=== PATIENT | male | born 1990 | race Caucasian/White ===

== ENCOUNTER 2021-12-31 09:25 | Emergency (ER) | payer SELFPAY ==
[~2021-12-31] VITALS: Ht 172 cm; Wt 203.0 kg
--- NOTE | 2021-12-31 09:36 | ED General ---
General Stated Complaint: LWR EXT TINGLING/NUMBNESS History of Present Illness Date Seen by Provider: Dec 31, 2021 Time Seen by Provider: 09:30 Initial Comments 31-year-old male is sent here from urgent care with complaints of sudden onset of headache and tingling in his bilateral upper and lower extremities which lasted for a few minutes and then went away. I spoke with the urgent care provider who relayed that the patient appeared to be having expressive aphasia while in the urgent care clinic, and he was sent over to get a CT scan to rule out stroke. Patient states that most of the tingling sensation is gone except for some mild tingling sensation in his hands and fingers bilaterally. Patient states that headache has resolved. Denies any weakness on either side of his body, chest pain, palpitations, dizziness, blurry vision, confusion. Patient is able to verbalize without any apparent problems. Speech is clear and coherent. Allergies and Home Medications Patient Home Medication List Home Medication List Reviewed: Yes Review of Systems Review of Systems Constitutional: no symptoms reported EENTM: no symptoms reported Respiratory: no symptoms reported Cardiovascular: no symptoms reported Gastrointestinal: no symptoms reported Genitourinary: no symptoms reported Musculoskeletal: no symptoms reported Skin: no symptoms reported Psychiatric/Neurological: Headache, Tingling Hematologic/Lymphatic: No Symptoms Reported Immunological/Allergic: no symptoms reported Physical Exam Vital Signs Vital Signs - First Documented 12/31/21 09:35 Temp 36.4 Pulse 98 Resp 16 B/P (MAP) 174/116 (135) Pulse Ox 97 O2 Delivery Room Air Capillary Refill : Height, Weight, BMI Height: '" Weight: lbs. oz. kg; BMI Method: General Appearance: No Apparent Distress, WD/WN, Obese HEENT: PERRL/EOMI Neck: Full Range of Motion, Normal Inspection, Non Tender, Supple Respiratory: Lungs Clear, Normal Breath Sounds Cardiovascular: Regular Rate, Rhythm Gastrointestinal: Non Tender, Soft Extremity: Normal Inspection, Normal Range of Motion, Non Tender Neurologic/Psychiatric: Alert, Oriented x3, No Motor/Sensory Deficits, Normal Mood/Affect, audience coordinator II-XII Norm as Tested Reflexes: 4+ Bicep (R), 4+ Bicep (L), 4+ Tricep (R), 4+ Tricep (L), 4+ Knee (R), 4+ Knee (L), 4+ Ankle (R), 4+ Ankle (L) Skin: Normal Color, Warm/Dry Lymphatic: No Adenopathy Progress/Results/Core Measures Suspected Sepsis SIRS Temperature: Pulse: Respiratory Rate: Laboratory Tests 12/31/21 09:52: White Blood Count 14.8H Blood Pressure / Mean: Laboratory Tests 12/31/21 09:52: Creatinine 0.51L, INR Comment 1.0, Platelet Count 402H, Total Bilirubin 0.3 Results/Orders Lab Results Laboratory Tests Test 12/31/21 09:52 12/31/21 10:12 Range/Units White Blood Count 14.8 H 4.3-11.0 10^3/uL Red Blood Count 5.09 4.30-5.52 10^6/uL Hemoglobin 13.3 13.3-17.7 g/dL Hematocrit 41 40-54 % Mean Corpuscular Volume 80 80-99 fL Mean Corpuscular Hemoglobin 26 25-34 pg Mean Corpuscular Hemoglobin Concent 33 32-36 g/dL Red Cell Distribution Width 14.7 H 10.0-14.5 % Platelet Count 402 H 130-400 10^3/uL Mean Platelet Volume 10.8 9.0-12.2 fL Immature Granulocyte % (Auto) 0 % Neutrophils (%) (Auto) 89 H 42-75 % Lymphocytes (%) (Auto) 8 L 12-44 % Monocytes (%) (Auto) 2 0-12 % Eosinophils (%) (Auto) 0 0-10 % Basophils (%) (Auto) 0 0-10 % Neutrophils # (Auto) 13.3 H 1.8-7.8 10^3/uL Lymphocytes # (Auto) 1.1 1.0-4.0 10^3/uL Monocytes # (Auto) 0.3 0.0-1.0 10^3/uL Eosinophils # (Auto) 0.0 0.0-0.3 10^3/uL Basophils # (Auto) 0.1 0.0-0.1 10^3/uL Immature Granulocyte # (Auto) 0.1 0.0-0.1 10^3/uL Neutrophils % (Manual) 85 % Lymphocytes % (Manual) 7 % Monocytes % (Manual) 2 % Band Neutrophils 6 % Platelet Estimate NORMAL Microcytosis SLIGHT Prothrombin Time 13.8 12.2-14.7 SEC INR Comment 1.0 0.8-1.4 Activated Partial Thromboplast Time 33 24-35 SEC Sodium Level 138 135-145 MMOL/L Potassium Level 4.2 3.6-5.0 MMOL/L Chloride Level 102 98-107 MMOL/L Carbon Dioxide Level 24 21-32 MMOL/L Anion Gap 12 5-14 MMOL/L Blood Urea Nitrogen 8 7-18 MG/DL Creatinine 0.51 L 0.60-1.30 MG/DL Estimat Glomerular Filtration Rate 139 BUN/Creatinine Ratio 16 Glucose Level 166 H 70-105 MG/DL Calcium Level 9.0 8.5-10.1 MG/DL Corrected Calcium 9.0 8.5-10.1 MG/DL Total Bilirubin 0.3 0.1-1.0 MG/DL Aspartate Amino Transf (AST/SGOT) 15 5-34 U/L Alanine Aminotransferase (ALT/SGPT) 19 0-55 U/L Alkaline Phosphatase 110 40-136 U/L Troponin I < 0.30 <0.30 NG/ML Total Protein 7.8 6.4-8.2 GM/DL Albumin 4.0 3.2-4.5 GM/DL Urine Color YELLOW Urine Clarity SL CLOUDY Urine pH 6.0 5-9 Urine Specific [place] 1.025 H 1.016-1.022 Urine Protein NEGATIVE NEGATIVE Urine Glucose (UA) NEGATIVE NEGATIVE Urine Ketones NEGATIVE NEGATIVE Urine Nitrite NEGATIVE NEGATIVE Urine Bilirubin NEGATIVE NEGATIVE Urine Urobilinogen 0.2 < = 1.0 MG/DL Urine Leukocyte Esterase NEGATIVE NEGATIVE Urine RBC (Auto) NEGATIVE NEGATIVE Urine RBC NONE /HPF Urine WBC 0-2 /HPF Urine Squamous Epithelial Cells 0-2 /HPF Urine Crystals NONE /LPF Urine Bacteria NEGATIVE /HPF Urine Casts NONE /LPF Urine Mucus SMALL H /LPF Urine Culture Indicated NO Urine Opiates Screen NEGATIVE NEGATIVE Urine Oxycodone Screen NEGATIVE NEGATIVE Urine Methadone Screen NEGATIVE NEGATIVE Urine Propoxyphene Screen NEGATIVE NEGATIVE Urine Barbiturates Screen NEGATIVE NEGATIVE Ur Tricyclic Antidepressants Screen NEGATIVE NEGATIVE Urine Phencyclidine Screen NEGATIVE NEGATIVE Urine Amphetamines Screen NEGATIVE NEGATIVE Urine Methamphetamines Screen NEGATIVE NEGATIVE Urine Benzodiazepines Screen NEGATIVE NEGATIVE Urine Cocaine Screen NEGATIVE NEGATIVE Urine Cannabinoids Screen NEGATIVE NEGATIVE My Orders Orders - ROSIE ENNIS MD Ct Head Wo-R/O Stroke (12/31/21 09:42) Cbc With Automated Diff (12/31/21 09:42) Comprehensive Metabolic Panel (12/31/21 09:42) Drug Screen Stat (Urine) (12/31/21 09:42) Protime With Inr (12/31/21 09:42) Partial Thromboplastin Time (12/31/21 09:42) Ua Culture If Indicated (12/31/21 09:42) Troponin I Fs (12/31/21 09:42) Ekg Tracing (12/31/21 09:43) Manual Differential (12/31/21 09:52) Chest 1 View Ap/Pa Only (12/31/21 10:47) Vital Signs/I&O 12/31/21 09:35 Temp 36.4 Pulse 98 Resp 16 B/P (MAP) 174/116 (135) Pulse Ox 97 O2 Delivery Room Air Capillary Refill : Progress Note : Progress Note 1. RULE OUT STROKE: - CT HEAD: unremarkable - CBC/ CMP unremarkable except for elevated WBC with unspecified source. CXR and UA is negative for infection source and pt is afebrile in ER. Advised to f/u w [facility] PCP for repeat labs - Troponin/ EKG: non-ischemic - UA/ UDS: unremarkable - Advised to follow up with PCP in 3 days -The patient was seen in the ED, and treated appropriately to presentation at a specific point in time. Patient is informed that there is a possibility that disease and illness can evolve and change in acuity rapidly or slowly after patient is discharged from the ER. Precautionary advice given to the patient for immediate return to ER if symptoms worsen or do not resolve, and to seek emerg ency care sooner rather than later. Pt also advised on the importance of PCP follow up and compliance with management and follow up plan with PCP and/or specialist, as this is part of the management plan. Pt verbally expressed understanding. ECG Initial ECG Impression Date: Dec 31, 2021 Initial ECG Impression Time: 10:02 Initial ECG Rate: 93 Initial ECG Rhythm: Normal Sinus Initial ECG Intervals: Normal Initial ECG Impression: Normal Diagnostic Imaging Diagonstic Imaging: Xray, CT Plain Films/CT/US/NM/MRI: chest, head Comments [facility]. [place], [place] NAME: KELLEY HOFFMAN [facility] REC#: [id number] PT STATUS: REG ER : 1990 PHYSICIAN: ROSIE ENNIS MD ADMIT DATE: 12/31/21/ER FS Draft Date of Exam:12/31/21 CHEST 1 VIEW AP/PA ONLY INDICATION: Leukocytosis. PA upright view of the chest is obtained. COMPARISON: No previous study is available for comparison at this time. FINDINGS: Heart size and pulmonary vasculature are within normal limits, and the lungs are clear, bilaterally. IMPRESSION: Unremarkable chest. Dictated on workstation # [id number] Dict: 12/31/21 1105 Trans: 12/31/21 1106 [id number] Interpreted by: LORRAINE GRAHAM MD Electronically signed by: TIFFANIE [place]IA [place], [place] NAME: KELLEY HOFFMAN [facility] REC#: [id number] PT STATUS: REG ER : 1990 PHYSICIAN: ROSIE ENNIS MD ADMIT DATE: 12/31/21/ER FS Signed Date of Exam:12/31/21 CT HEAD WO-R/O STROKE PROCEDURE: CT head wo r/o stroke. TECHNIQUE: Multiple contiguous axial images were obtained through the brain without the use of intravenous contrast. Auto Exposure Controls were utilized during the CT exam to meet ALARA standards for radiation dose reduction. INDICATION: Numbness and tingling in hands, arms and both legs. Headache. COMPARISON: None available. FINDINGS: No intracranial hyperdense hemorrhage or space-occupying mass. No hydrocephalus or midline shift. Romero-white matter differentiation is well-preserved. No acute calvarial abnormality. The paranasal sinuses and mastoid air cells are clear. IMPRESSION: No acute intracranial process by CT. Dictated by: Dictated on workstation # [id number] Dict: 12/31/21 1024 Trans: 12/31/21 1028 [facility] [id number] Interpreted by: KIKO PRICE MD Electronically signed by: KIKO PRICE MD 12/31/21 1028 Departure Impression Primary Impression: Disease ruled out after examination Additional Impression: Anxiety Disposition: 01 HOME, SELF-CARE Condition: Stable Departure-Patient Inst. Referrals: ANATOLY PRADO APRN (PCP) Primary Care Physician [facility] (Family) Primary Care Physician Patient Instructions: Anxiety, Adult (DC) Add. Discharge Instructions: - Advised to follow up with PCP in 3 days - Normal work up - Return to ER if symptoms return or worsen ROSIE ENNIS MD Dec 31, 2021 09:36
[2021-12-31 09:59] LABS: BASOPHILS # (AUTO) 0.1 10^3/uL (0.0-0.1); BASOPHILS % (AUTO) 0 % (0-10); EOSINOPHILS % (AUTO) 0 % (0-10); HEMATOCRIT 41 % (40-54); HEMOGLOBIN 13.3 g/dL (13.3-17.7); LYMPHOCYTES # (AUTO) 1.1 10^3/uL (1.0-4.0); LYMPHOCYTES % (AUTO) 8 % (12-44); MEAN CORPUSCULAR HEMOGLOBIN 26 pg (25-34); MEAN CORPUSCULAR HGB CONC 33 g/dL (32-36); MEAN CORPUSCULAR VOLUME 80 fL (80-99); MEAN PLATELET VOLUME 10.8 fL (9.0-12.2); MONOCYTES # (AUTO) 0.3 10^3/uL (0.0-1.0); MONOCYTES % (AUTO) 2 % (0-12); NEUTROPHILS # (AUTO) 13.3 10^3/uL (1.8-7.8); NEUTROPHILS % (AUTO) 89 % (42-75); PLATELET COUNT 402 10^3/uL (130-400); WHITE BLOOD COUNT 14.8 10^3/uL (4.3-11.0)
[2021-12-31 10:16] LABS: BILIRUBIN,URINE NEGATIVE (NEGATIVE); CLARITY,URINE SL CLOUDY; COLOR,URINE YELLOW; GLUCOSE, URINE (UA) NEGATIVE (NEGATIVE); KETONES,URINE NEGATIVE (NEGATIVE); LEUKOCYTE ESTERASE ,URINE NEGATIVE (NEGATIVE); NITRITE,URINE NEGATIVE (NEGATIVE); PROTEIN,URINE NEGATIVE (NEGATIVE)
--- NOTE | 2021-12-31 10:30 | Diagnostic Imaging Report ---
PROCEDURE: CT head wo r/o stroke. TECHNIQUE: Multiple contiguous axial images were obtained through the brain without the use of intravenous contrast. Auto Exposure Controls were utilized during the CT exam to meet ALARA standards for radiation dose reduction. INDICATION: Numbness and tingling in hands, arms and both legs. Headache. COMPARISON: None available. FINDINGS: No intracranial hyperdense hemorrhage or space-occupying mass. No hydrocephalus or midline shift. Romero-white matter differentiation is well-preserved. No acute calvarial abnormality. The paranasal sinuses and mastoid air cells are clear. IMPRESSION: No acute intracranial process by CT. Dictated by: Dictated on workstation # [id number]
[2021-12-31 10:37] LABS: BACTERIA,URINE NEGATIVE /HPF; SQUAMOUS EPITHELIAL CELL,UR 0-2 /HPF; WBC,URINE 0-2 /HPF
[2021-12-31 10:38] LABS: AMPHETAMINE SCREEN, URINE NEGATIVE (NEGATIVE); BARBITURATE SCREEN URINE NEGATIVE (NEGATIVE); BENZODIAZEPINES SCREEN URINE NEGATIVE (NEGATIVE); CANNABINOID SCREEN, URINE NEGATIVE (NEGATIVE); COCAINE SCREEN URINE NEGATIVE (NEGATIVE); METHADONE STAT NEGATIVE (NEGATIVE); OPIATE SCREEN URINE NEGATIVE (NEGATIVE); OXYCODONE STAT NEGATIVE (NEGATIVE); PROPOXYPHENE STAT NEGATIVE (NEGATIVE); TRICYCLIC ANTIDEPRESSANTS SCRE NEGATIVE (NEGATIVE)
[2021-12-31 10:38] LABS: BAND NEUTROPHILS 6 %; LYMPHOCYTES % (MANUAL) 7 %; MONOCYTES % (MANUAL) 2 %; NEUTROPHILS % (MANUAL) 85 %
[2021-12-31 10:39] LABS: MICROCYTOSIS SLIGHT; PLATELET ESTIMATE NORMAL; PROTHROMBIN TIME PATIENT 13.8 SEC (12.2-14.7)
[2021-12-31 10:40] LABS: ALANINE AMINOTRANSFERASE 19 U/L (0-55); ALKALINE PHOSPHATASE 110 U/L (40-136); BILIRUBIN,TOTAL 0.3 MG/DL (0.1-1.0); BUN/CREATININE RATIO 16; CARBON DIOXIDE 24 MMOL/L (21-32); CHLORIDE 102 MMOL/L (98-107); CREATININE SERUM 0.51 MG/DL (0.60-1.30); GFR ESTIMATED 139; GLUCOSE 166 MG/DL (70-105); POTASSIUM 4.2 MMOL/L (3.6-5.0); SODIUM 138 MMOL/L (135-145); TOTAL PROTEIN 7.8 GM/DL (6.4-8.2)
--- NOTE | 2021-12-31 11:07 | Diagnostic Imaging Report ---
INDICATION: Leukocytosis. PA upright view of the chest is obtained. COMPARISON: No previous study is available for comparison at this time. FINDINGS: Heart size and pulmonary vasculature are within normal limits, and the lungs are clear, bilaterally. IMPRESSION: Unremarkable chest. Dictated by: Dictated on workstation # [id number]
[2021-12-31 11:25] VITALS: BP 148/82
== END 2021-12-31 11:26 | disposition home or self-care (01) ==
LOC: ER FS 09:27
DX: F41.9 Anxiety disorder, unspecified (principal); E66.9 Obesity, unspecified
CPT/HCPCS: 36415; 70450; 71045; 80053; 80306; 81000; 84484; 85007; 85027; 85610; 85730; 93005

== ENCOUNTER → 2022-05-20 | Outpatient (CLI) | payer SELFPAY ==
--- NOTE | 2022-05-20 16:51 | Diagnostic Imaging Report ---
INDICATION: Medial knee pain. EXAMINATION: Left knee 05/20/2022. FINDINGS: 3 views of the knee. There is a large joint effusion. There is mild medial and lateral joint space narrowing. On the lateral view there is a vague lucency along the anterior border of the patella with adjacent osseous fragments nonspecific. An acute patellar fracture cannot be excluded. Remaining osseous structures intact with no dislocations. IMPRESSION: 1. Abnormality along the patella is nonspecific with fracture not excluded. There is point tenderness to the patellar region CT may provide further characterization. 2. Large joint effusion with degenerative findings noted. Dictated by: Dictated on workstation # [id number]
== END ==
LOC: RAD FS 14:20
PROVIDERS: ATTEND Registered Nurse Community Health
DX: M25.462 Effusion, left knee (principal); M17.12 Unilateral primary osteoarthritis, left knee; M22.8X2 Other disorders of patella, left knee
CPT/HCPCS: 73562